=== PATIENT | female | born 1985 | race African-American/Black ===

== ENCOUNTER 2021-05-27 18:37 | Emergency (ER) | payer OTHER ==
[~2021-05-27] VITALS: Ht 157.5 cm; Wt 49.4 kg
[2021-05-27 23:31] LABS: HEMATOCRIT 39.3 % (37.0-47.0); HEMOGLOBIN 13.7 gm/dL (12.0-15.0); MCH 32.5 pg (26.0-34.0); RBC 4.22 mil/uL (4.20-5.00); RDW 13.9 % (10.5-14.5); WBC 5.8 thou/uL (4.0-11.0)
[2021-05-27 23:45] LABS: CALCIUM 9.7 mg/dL (8.5-10.1); CREATININE 0.5 mg/dL (0.6-1.0); POTASSIUM 4.7 mmol/L (3.5-5.1)
[2021-05-27 23:53] LABS: ALBUMIN 4.1 g/dL (3.4-5.0); TOTAL BILIRUBIN 0.6 mg/dL (0.2-1.0)
[2021-05-28 03:14] VITALS: BP 132/70
--- NOTE | 2021-05-28 08:40 | EKG ---
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 : 1985 Requested By: Vickie Ron Order Number: [id number] MD: Bienvenido Bruner Measurements Intervals [place] Rate: 66 P: 43 OR: 139 QRS: 46 QRSD: 107 T: 30 QT: 381 QTc: 400 Interpretive Statements Sinus rhythm RSR' in V1 or V2, probably normal variant No previous ECG available for comparison Electronically Signed On 05-28-2021 8:40:08 [employer]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
== END 2021-05-28 00:21 | disposition home or self-care (01) ==
LOC: ER 18:37
PROVIDERS: Nurse Practitioner Family
DX: U07.1 COVID-19 (principal); F17.210 Nicotine dependence, cigarettes, uncomplicated